=== PATIENT | male | born 1980 | race Caucasian/White ===

== ENCOUNTER 2016-11-29 02:23 | Inpatient (IN) | payer OTHER ==
--- NOTE | ~2016-11-29 | HP ---
Unit #: [id number] #: [id number] Patient: MOE HALLMAN [id number] [place] [address] [id number] I MR#: [id number] NAME: MOE HALLMAN. ROOM: 61 Age: 36 Sex: M Admission Date: 11/29/2016 : 1980 Attending Physician: Gorge Bridges M.D. Admitting Physician: Gorge Bridges M.D. Primary Care Physician: Primary Care Physician No HISTORY AND PHYSICAL HISTORY OF PRESENT ILLNESS Moe is a 36 year old admitted to [address] [place] [address] because of his polysubstance abuse which includes Suboxone and IV heroin. PAST MEDICAL HISTORY Long history of illicit substance abuse. PAST SURGICAL HISTORY Nothing reported. ALLERGIES No known drug allergies. SOCIAL HISTORY Smokes one pack per day. Denies alcohol. Admits to a long history of opioid abuse to include IV heroin. FAMILY HISTORY Medically noncontributory. REVIEW OF SYSTEMS CONSTITUTIONAL: No fever or chills. HEENT: Denies any sore throat, ear pain or runny nose. CARDIOVASCULAR: Denies chest pain, irregular heart rhythm or palpitations. CHEST: Denies shortness of breath or cough. No hemoptysis. GASTROINTESTINAL: Denies nausea, vomiting, diarrhea or chronic constipation. ENDOCRINE: Denies history of increased thirst or urination. No recent significant weight loss or gain. GENITOURINARY: Denies dysuria, frequency, or hematuria. SKIN: Denies any rashes. HEMATOLOGIC: Denies history of increased bleeding or bruising. MUSCULOSKELETAL: Denies any hot, swollen joints. No generalized muscle pain. NEUROLOGIC: Denies problems with vision or speech. No frequent, severe headaches. No numbness, tingling or weakness in any extremities. Denies loss of bladder or bowel control. CURRENT MEDICATIONS Detox protocol PHYSICAL EXAMINATION Unit #: [id number] #: [id number] Patient: MOE HALLMAN GENERAL: Alert, well-nourished, in no apparent distress. VITAL SIGNS: Blood pressure 114/84, heart rate 80, respirations 16, temperature 98.6. WEIGHT: 200 pounds. HEIGHT: 5'11". SKIN: Warm and dry without rash or lesion. HEENT: Normocephalic. TMs not viewed. Oral and nasal passages clear. Conjunctivae clear. Pupils equal, round and reactive to light and accommodation. Extraocular movements intact. NECK: Supple without lymphadenopathy or thyromegaly. HEART: Regular rate and rhythm without murmur. LUNGS: Clear. ABDOMEN: Soft, nontender. : Not done. EXTREMITIES: No evidence of cyanosis, clubbing or edema. Moves all extremities without focal deficit. NEUROLOGICAL: Grossly within normal limits. Cranial Nerves: II: Visual malik are intact. III, IV AND : Extraocular movements are intact. Pupils are equal, round and reactive to light. V: Facial sensation is grossly normal. VII: Facial movements and expression are normal. VIII: Auditory acuity grossly intact. IX, X: Uvula is midline. Phonation is normal. XI: Patient shrugs shoulders and turns head normally. XII: Tongue protrudes in the midline. Sensory and Motor Function: Sensory and motor sensation is grossly normal. Motor: moves all extremities well. Coordination: Gait is normal. Deep Tendon Reflexes: Intact. IMPRESSION Psychiatric admission RECOMMENDATIONS PSYCHIATRIC: Per psychiatrist. MEDICAL: I see no contraindications to participating in facility's activities. MEDICAL PROGNOSIS Good. MEDICAL CONDITION Stable. Dictated by... Ny Hicks P.A.-C. for Jaki Stewart/markus TD: 11/30/2016 02:07 JOB #: [id number] Unit #: [id number] #: [id number] Patient: MOE HALLMAN HISTORY AND PHYSICAL X Ny Hicks PA X HISTORY AND PHYSICAL
--- NOTE | ~2016-11-29 | DS ---
Unit #: [id number] #: [id number] Patient: LUIS FERNANDO HALLMAN [id number] [facility] [address] [place] [address] [id number] I MR#: [id number] NAME: LUIS FERNANDO HALLMAN. ROOM: [facility] [place] Age: 36 Sex: M Admission Date: 11/29/2016 : 1980 Discharge Date: 12/01/2016 Attending Physician: Gorge Bridges M.D. Primary Care Physician: Primary Care Physician No DISCHARGE SUMMARY REASON FOR ADMISSION Detox, increased anxiety and depression. DIAGNOSTIC STUDIES LABORATORY RESULTS: Remarkable for urine drug screen positive for benzodiazepine, amphetamine, marijuana. HOSPITAL COURSE The patient was admitted to inpatient unit on 11/29/2016 and discharged on 12/01/2016. The patient was treated on the inpatient unit with group therapy, individual therapy, medication management, detox protocol, and detox monitoring. The patient responded well with the above modalities of treatment. Subsequently, the patient was discharged with a plan to follow up in outpatient clinic. DISCHARGE MEDICATIONS None. DISCHARGE DIAGNOSIS Psychiatric: Opioid use disorder, severe, F11.20; sedative hypnotic use disorder, moderate, F13.20; mood disorder, not otherwise specified; cannabis abuse, moderate, F12.20. Secondary diagnosis: Deferred. Medical diagnosis: None. Stressors: Psychosocial stressor. DISCHARGE INSTRUCTIONS The patient to follow up in outpatient clinic as per perinatal social worker. CONDITION ON DISCHARGE The patient was pleasant and cooperative. Denied any psychotic symptom or any suicidal ideation. PROGNOSIS Guarded. DIET AND ACTIVITY As tolerated. Unit #: [id number] #: [id number] Patient: LUIS FERNANDO HALLMAN Dictated by... Jaki Samson/neri TD: 12/02/2016 01:07 JOB #: [id number] DISCHARGE SUMMARY X Gorge Bridges MD X DISCHARGE SUMMARY
--- NOTE | ~2016-11-29 | PN ---
Unit #: [id number] #: [id number] Patient: MOE MCKEON [id number] [facility] [address] [place] [address] [id number] I MR#: [id number] NAME: MOE MCKEON ROOM: P261 Age: 36 Sex: M Admission Date: 11/29/2016 : 1980 Attending Physician: Gorge Bridges M.D. Admitting Physician: Gorge Bridges M.D. Primary Care Physician: Primary Care Physician Daniela EGAN NOTES DATE OF SERVICE: 11/30/2016 DISCUSSION Moe Mckeon is a 36-year-old male, seen on 11/30/2016. The patient compliant and cooperative. Mood sad, dysphoric, and anxious. The patient was cooperative. No aggressive behavior. Denied any complaints. REVIEW OF SYSTEMS Complete review of systems unremarkable. MENTAL STATUS EXAMINATION General appearance, the patient dressed casually. Attention span and concentration, fair. Oriented in place and person. Mood and affect, labile. Speech, regular rate. Thought process, goal directed. The patient denied any thoughts of harming self or others or any psychotic symptom. Recent and remote memory, poor. Insight and judgment, poor. DIAGNOSIS Polysubstance abuse. ASSESSMENT AND PLAN Advised to continue with current medication and therapeutic protocol. If needed, consider further adjustment of medication. Dictated by... Jaki Samson/neri TD: 12/02/2016 14:02 JOB #: [id number] [facility] PROGRESS NOTES X Gorge Bridges MD PROGRESS NOTE
--- NOTE | ~2016-11-29 | PA ---
Unit #: [id number] #: [id number] Patient: MOE MCKEON [id number] [facility] [address] [place] [address] [id number] MR#: [id number] NAME: MOE MCKEON. ROOM: [facility] Age: 36 Sex: M Admission Date: 11/29/2016 : 1980 Date of Assessment: 11/29/2016 Attending Physician: Gorge Bridges M.D. Admitting Physician: Gorge Bridges M.D. Primary Care Physician: Primary Care Physician No PSYCHIATRIC ASSESSMENT INFORMANTS The patient's reliability, fair; chart reliability, good. CHIEF COMPLAINT Detox. HISTORY OF PRESENT ILLNESS Moe Mckeon is a 36-year-old male, seen on 2-Breanna. The patient reported that he was using Suboxone, history of opioid abuse. The patient reported he was using on a daily basis, history of inpatient [facility], in the past outpatient followup [facility]. The patient currently homeless. The patient presented with detoxing from opioid. The patient denied any suicidal or homicidal ideation. The patient reported feeling sad, depressed, anxious. The patient reported using Suboxone on a daily basis from the last 4 years. Reports that he gets Suboxone on the street at least 8 g strip. The patient also prescribed Klonopin and he uses benzos that gets him on the street. The patient reported that he uses up to 15 g daily. The patient is not eating or sleeping. The patient needing inpatient admission at this time for psychiatric stabilization. PAST PSYCHIATRIC HISTORY Remarkable for history of previous treatment as mentioned above. FAMILY HISTORY/SOCIAL HISTORY The patient is currently homeless. Family psychiatric illness is remarkable for history of mental illness in grandmother, alcohol abuse in father, history of schizophrenia and bipolar disorder in brother. No known history of any abuse. MEDICAL HISTORY Unremarkable. Musculoskeletal; muscle strength and tone, no atrophy or abnormal movement. Gait normal. MEDICATION HISTORY None. ALLERGIES No known drug allergies. SUBSTANCE ABUSE HISTORY Remarkable for tobacco use, age of onset 15; alcohol, age of onset 20; marijuana, age of onset 17; opioid, age of onset 20; prescription Unit #: [id number] #: [id number] Patient: MOE MCKEON medication, age of onset 29. The patient reported sweating, chills, nervousness, abdominal cramping, depressed mood, irritability, poor appetite, restlessness. MENTAL STATUS EXAMINATION CONSTITUTIONAL: Measurement of vital signs; temperature 97.7, pulse 98, respirations 20, blood pressure 113/84. Height 5 feet 11 inches. Weight 200 pounds. GENERAL APPEARANCE: The patient dressed casually. The patient did not show any facial deformity. MUSCULOSKELETAL: Please see above. PSYCHIATRIC EXAMINATION Description of speech; regular rate, normal volume, normal articulation, coherent. Description of thought process, goal directed. Description of association, intact. Description of abnormal psychotic thinking; the patient denied any hallucination or delusions, but mood lability and substance abuse. Description of patient's judgment; concerning everyday activity, poor. Social situation, poor. The patient denied any suicidal or homicidal ideation or any psychotic symptom. Complete mental status examination; oriented in time, place, and person. Recent and remote memory, fair. Attention span and concentration, fair. Language, able to name object and repeat phrases. Fund of knowledge; aware of current event, passive vocabulary intact. Mood and affect, sad and dysphoric. Insight and judgment, fair to poor. ASSETS AND LIABILITIES Assets; the patient articulate, able to take care of ADLs. Liability; history of substance abuse, depression. ADMITTING DIAGNOSES Psychiatric: 1. Opioid use disorder, severe, F11.20. 2. Sedative hypnotic use disorder, moderate, F13.20. 3. Mood disorder, not otherwise specified, F32.9. Secondary diagnosis: Deferred. Medical diagnosis: None. Stressors: Psychosocial stressors. PSYCHIATRIC PLAN AND TREATMENT GOAL 1. Advised to admit the patient on the inpatient unit. Provide safe, supportive, and structured environment. 2. Ordered labs; CBC, CMP, UA, and UDS. 3. The patient to be started on detox protocol and detox monitoring. If needed, consider further adjustment of medication. The patient to attend all the programing on the inpatient unit. Treatment goal to attain euthymic mood, gain insight into his problem, and learn coping skills. DISCHARGE PLAN Plan to stabilize the patient and consider followup in outpatient program. ESTIMATED LENGTH OF STAY 5 days. Unit #: [id number] #: [id number] Patient: MOE MCKEON Fabiola Dictated by... Gorge Jaki Cowart TD: 11/30/2016 04:34 JOB #: [id number] PSYCHIATRIC ASSESSMENT X Gorge Bridges MD PSYCHIATRIC ASSESSMENT
[~2016-11-29 02:23] MED LIST: AMOXICILLIN500 M1 PO; EC-NAPROSYN500 MG PO; IBUPROFEN PO; INDOCIN SR75 MG PO; ULTRAM PO; VICODIN 5/500 T1 TAB PO; ZOFRAN PO
[2016-11-29 09:36] LABS: BASOPHIL# 0.1 X10e3 (0-0.3); BASOPHIL% 1.2 % (0-2.5); EOSINOPHIL# 0.3 X10e3 (0-0.7); EOSINOPHIL% 4.5 % (0.0-7.0); HEMATOCRIT 40.8 % (38.0-50.0); HEMOGLOBIN 14.1 gm/dL (13.0-16.0); LYMPHOCYTE# 2.3 X10e3 (1.0-3.5); LYMPHOCYTE% 34.9 % (17.0-45.0); MEAN CELL VOLUME 87.9 FL (83-96); MEAN CORPUSCULAR HEMOGLOBIN 30.4 PG (28-34); MEAN CORPUSCULAR HGB CONC 34.6 g/dL (30-36); MEAN PLATELET VOLUME 8.7 FL (6.5-11.5); MONOCYTE# 0.7 X10e3 (0-1.0); MONOCYTE% 10.6 % (3.0-12.0); NEUTROPHIL# 3.2 X10e3 (1.5-7.1); NEUTROPHIL% 48.8 % (40-75); PLATELET COUNT 251 X10e3 (140-420); RED BLOOD COUNT 4.64 X10e (3.90-5.60); RED CELL DISTRIBUTION WIDTH 12.9 % (11.0-15.5); WHITE BLOOD COUNT 6.6 X10e3 (4.0-10.5)
[2016-11-29 09:38] LABS: DIFF IND NO
[2016-11-29 10:02] LABS: URINE APPEARANCE CLOUDY; URINE BLOOD NEG (NEG); URINE COLOR YELLOW; URINE GLUCOSE NORM (NORM); URINE KETONE NEG (NEG); URINE LEUKOCYTE ESTERASE NEG (NEG); URINE NITRATE NEG (NEG); URINE PROTEIN 1+ (NEG); URINE SPECIFIC GRAVITY 1.025 (1.003-1.035); URINE UROBILINOGEN 4 MG/DL (NORM)
[2016-11-29 10:04] LABS: THYROID STIMULATING HORMONE 1.36 uIU/ml (0.34-5.60)
[2016-11-29 10:11] LABS: FREE THYROXIN (T4) 0.86 ng/dL (0.58-1.64)
[2016-11-29 10:27] LABS: URINE BILIRUBIN NEG (NEG)
[2016-11-29 10:34] LABS: ALBUMIN SERUM 4.2 g/dL (3.5-5.0); ALKALINE PHOSPHATASE 58 U/L (32-92); ALT (SGPT) 16 U/L (10-40); AST (SGOT) 17 U/L (10-42); BILIRUBIN,TOTAL 0.7 mg/dL (0.2-2.0); BLOOD UREA NITROGEN 10 mg/dL (9-23); BUN/CREATININE RATIO 11.11; CALCIUM SERUM 9.6 mg/dL (8.4-10.2); CARBON DIOXIDE 27 mmol/L (22-31); CHLORIDE 103 mmol/L (100-111); CREATININE SERUM 0.9 mg/dL (0.6-1.4); GLOM FILT RATE Estimated ABOVE60 mL/min (>60); GLUCOSE FASTING 87 mg/dL (70-110); POTASSIUM 4.5 mmol/L (3.5-5.1); PROTEIN TOTAL SERUM 6.8 g/dL (6.0-8.3); SODIUM 144 mmol/L (135-145)
[2016-11-29 11:23] LABS: AMPHETAMINE POS (NEG); BARBITURATES NEG (NEG); BENZODIAZEPINES POS (NEG); COCAINE NEG (NEG); MARIJUANA POS (NEG); OPIATES POS (NEG); TRICYCLIC ANTIDEPRESSANTS NEG (NEG); U METHADONE NEG (NEG)
[2016-12-10] MEDS ORDERED: NO MEDICATIONS (01:21)
== END 2016-12-01 13:45 | disposition home or self-care (01) | DRG 897 ==
LOC: P2L 02:23
PROVIDERS: Psychiatry & Neurology Psychiatry
PROC: HZ2ZZZZ Detoxification Services for Substance Abuse Treatment (ICD-10-PCS; principal; 2016-11-29)
DX: F11.20 Opioid dependence, uncomplicated (principal); F13.20 Sedative, hypnotic or anxiolytic dependence, uncomplicated; F39 Unspecified mood [affective] disorder; F17.210 Nicotine dependence, cigarettes, uncomplicated
CPT/HCPCS: 80053; 80307; 81003; 84439; 84443; 85025; 86592

== ENCOUNTER 2016-12-10 01:36 | Emergency (ER) | payer OTHER ==
--- NOTE | ~2016-12-10 | CT2 ---
[facility] A Service of [facility] RADIOLOGY TEXT RESULTS PATIENT: LUIS FERNANDO HALLMAN LOCATION: SED : 78 UNIT #: [id number] AGE: [address]: Jose Kiran MD SEX: M ORDER DR: [id number] [place] [address] [id number] MR#: [id number] Acc #: [id number] NAME: LUIS FERNANDO HALLMAN. : 1980 SEX: M STUDY DATE/TIME: 12/10/2016 3:49 UNIT: SED ROOM: STUDY DESCRIPTION: CT Abd and Pelv W Cont Attending Physician: Jose Kiran M.D. Ordering Physician: Jose Kiran M.D. Primary Care Physician: Primary Care Physician No MEDICAL IMAGING REPORT This report is preliminary unless electronic signature is present. EXAM CT abdomen and pelvis with contrast 12/10/2016 HISTORY 36-year-old male in the ED complaining of generalized abdomen pain and vomiting beginning about 7 hours prior to arrival. TECHNIQUE CT examination of the abdomen and pelvis was performed with IV contrast. GI contrast was not ordered. This CT examination was performed with one or more of the following radiation dose reduction techniques: automatic exposure control, adjustment of mA and/or kV according to patient size, and iterative reconstruction. FINDINGS ABDOMEN: Liver, pancreas and spleen are normal in size and appearance. Contracted gallbladder. No bile duct dilatation. Both kidneys are negative with no evidence of urinary obstruction. Normal-caliber abdominal aorta. Small bowel and colon are normal in caliber and appearance, as imaged. The appendix is not directly visualized, but there is no indirect CT evidence of acute appendicitis. PELVIS: Bladder, prostate and rectum are within normal limits. No inguinal hernia or abdominal wall hernia. Limited lung base images show no active disease in the lower chest. IMPRESSION Negative CT examination of the abdomen and pelvis. [facility] A Service of [facility] RADIOLOGY TEXT RESULTS PATIENT: LUIS FERNANDO HALLMAN LOCATION: SED : 78 UNIT #: [id number] AGE: [address]: Jose Kiran MD SEX: M ORDER DR: Dictated by... Ramesh Baumann M.D. THIS IS AN ELECTRONICALLY VERIFIED REPORT Ramesh Baumann M.D. at 12/11/2016 9:54 PM RAFIA/mary TD: 12/11/2016 08:22 JOB #: [id number] MEDICAL IMAGING REPORT
[~2016-12-10 01:36] MED LIST changes: +NO MEDICATIONS
[2016-12-10 02:13] LABS: HEMATOCRIT 45.5 % (38.0-50.0); MEAN CELL VOLUME 89.9 FL (83-96); MEAN CORPUSCULAR HEMOGLOBIN 29.7 PG (28-34); PLATELET COUNT 284 X10e3 (140-420); RED BLOOD COUNT 5.06 X10e (3.90-5.60); RED CELL DISTRIBUTION WIDTH 13.8 % (11.0-15.5); WHITE BLOOD COUNT 10.2 X10e3 (4.0-10.5)
[2016-12-10 02:14] LABS: BASOPHIL% 0.2 % (0-2.5); DIFF IND NO; LYMPHOCYTE% 10.1 % (17.0-45.0); MONOCYTE# 0.3 X10e3 (0-1.0); MONOCYTE% 2.7 % (3.0-12.0); NEUTROPHIL# 8.9 X10e3 (1.5-7.1)
[2016-12-10 02:34] LABS: ALBUMIN SERUM 4.9 g/dL (3.5-5.0); ALKALINE PHOSPHATASE 66 U/L (32-92); ALT (SGPT) 18 U/L (10-40); AST (SGOT) 21 U/L (10-42); BILIRUBIN,TOTAL 0.6 mg/dL (0.2-2.0); BLOOD UREA NITROGEN 14 mg/dL (9-23); BUN/CREATININE RATIO 15.55; CALCIUM SERUM 9.8 mg/dL (8.4-10.2); CARBON DIOXIDE 26 mmol/L (22-31); CHLORIDE 100 mmol/L (100-111); CREATININE SERUM 0.9 mg/dL (0.6-1.4); GLOM FILT RATE Estimated ABOVE60 mL/min (>60); GLUCOSE FASTING 139 mg/dL (70-110); LIPASE 29 U/L (22-51); PROTEIN TOTAL SERUM 8.2 g/dL (6.0-8.3); SODIUM 137 mmol/L (135-145)
[2016-12-10 02:36] LABS: BILIRUBIN, DIRECT <0.1 mg/dL (0.0-0.2); BILIRUBIN,INDIRECT 0.5 mg/dL (0.0-0.9)
[2016-12-10] MEDS ORDERED: ZOFRAN ODT4 MG PO (04:36)
[2016-12-10] MEDS ORDERED: PHENERGAN25 M1 PO (04:37)
[2016-12-10] MEDS ORDERED: PHENERGAN12.5 M2 PR (04:38)
== END 2016-12-10 04:38 | disposition home or self-care (01) ==
LOC: SED 01:36
PROVIDERS: Emergency Medicine
DX: R10.9 Unspecified abdominal pain (principal); R11.2 Nausea with vomiting, unspecified
CPT/HCPCS: 36415; 74177; 80048; 80076; 83690; 85025; 96361; 96374; 96375; 96376; 99284; J2405; J2550; Q9967